=== PATIENT | male | born 1945 | race Caucasian/White ===

== ENCOUNTER 2020-02-24 19:03 | Emergency (ER) | payer MEDICARE, SELFPAY ==
--- NOTE | ~2020-02-24 | XR_ITS ---
EXAMINATION: XR chest 1V portable INDICATION: Shortness of breath and fever TECHNIQUE: Portable AP chest at 1948 hours COMPARISON: 01/28/2013 FINDINGS: There are diffuse interstitial and airspace opacities of the lungs. No pleural effusion or pneumothorax is identified. The cardiomediastinal silhouette is normal for technique. The visualized osseous structures are unremarkable. IMPRESSION: 1. Diffuse lung disease, consistent with pneumonia and/or pulmonary edema and/or atelectasis. Reviewed, dictated and finalized at location A. STITCHER IMPRESSION: 1. Diffuse lung disease, consistent with pneumonia and/or pulmonary edema and/o r atelectasis.
[2020-02-24 19:13] VITALS: BP 163/76; PULSE 93; RESP 19; TEMP 37.2; O2SAT 95
--- NOTE | 2020-02-24 19:18 | ECG_ITS ---
Measurements Intervals [place] Rate: 87 P: 28 MD: 153 QRS: 40 QRSD: 92 T: 11 QT: 325 QTc: 391 Interpretive Statements SINUS RHYTHM EARLY PRECORDIAL R/S TRANSITION BASELINE ARTIFACT- I, II, III, AVR, AVL BORDERLINE ECG Electronically Signed On 02-24-2020 21:47:07 SPINNING MACHINE OPERATOR by Alexander Dickerson D.O.
--- NOTE | 2020-02-24 19:30 | ED.SOB ---
HPI - SOB/Dyspnea General Chief Complaint: Shortness of Breath/Dyspnea Stated Complaint: sent from urgent care, -cardiomegaly Time Seen by Provider: 02/24/20 19:30 History of Present Illness HPI Narrative: 74 yo male sent from urgent care for SOB. He reports that he has been sick for several days. His symptoms have been cough, SOB, aches, and fatigue. He was concerned that he may have COVID-19 and went to urgent care for testing. They collected the test and did a chest x-ray. They told him that on the x-ray his heart was enlarged and he had fluid in his lungs, so they sent him here. Related Data Allergies Allergy/AdvReac Type Severity Reaction Status Date / Time No Known Allergies Allergy Mild Verified 02/24/20 19:24 Review of Systems Review of Systems: All systems reviewed & are unremarkable except as noted in HPI and below Constitutional: Constitutional: Reports fatigue and Denies fever(s) Cardiovascular: Cardiovascular: Denies chest pain Respiratory: Respiratory: Reports dyspnea Gastrointestinal: Gastrointestinal: Denies abdominal pain Musculoskeletal: Musculoskeletal: Reports myalgias Neurologic: Denies weakness [facility] Past Medical History Medical History (Updated 02/27/20 @ 16:24 by Eric Chan MD) Hyperlipidemia Social History Social History (Updated 02/27/20 @ 16:24 by Eric Chan MD) Smoking status: Never smoker Gender identity (if verbalized by the patient): Male Exam Const: General: no acute distress and alert Orientation/consciousness: patient oriented x3 HENMT: Head: normal to inspection Neck: Neck: normal visual inspection and no lymphadenopathy Chest: Chest palpation & inspection: no tenderness Resp: Effort & Inspection: tachypneic Auscultation: clear to auscultation bilaterally, crackles bilateral in the lower lung ponce and no wheezes Cardio: Jugular venous distension: no JVD Rate: regular rate Rhythm: regular rhythm Heart sounds: no murmurs GI: Inspection: non-distended GI Palp: Yes Soft to palpation and No Tenderness to palpation present (GI) Skin: General skin exam: normal color Neuro: General: patient oriented x3, moves all extremities, no focal motor deficits and CN's II-XI intact bilaterally Speech: normal speech Gait exam (Neuro): Normal gait present Extrem: General: no edema Psych: Appearance: well kempt Affect: normal affect Course Vital Signs Vital signs: Vital Signs Temperature 37.2 C 02/24/20 19:13 Pulse Rate 93 02/24/20 19:13 Respiratory Rate 19 02/24/20 19:13 Blood Pressure 163/76 H 02/24/20 19:13 Pulse Oximetry 95 02/24/20 19:13 Temperature 37.4 C 02/24/20 21:59 Pulse Rate 92 02/24/20 21:59 Respiratory Rate 18 02/24/20 21:59 Blood Pressure 155/72 H 02/24/20 21:59 Pulse Oximetry 94 02/24/20 21:59 MDM - SOB/Dyspnea MDM Narrative Medical decision making narrative: Nonspecific infiltrateon x-ray. BNP normal. Most likely infectious. Differential Diagnosis Differential diagnosis: Likely congestive heart failure and community acquired pneumonia Medical Records Attestation: I reviewed the patient's medical records. Lab Data Attestation: I reviewed the patient's lab results. Result diagrams: 02/24/20 19:20 02/24/20 19:20 Labs: Lab Results 02/24/20 02/24/20 02/24/20 Range/Units 19:20 19:20 19:20 WBC 10.2 H (4.5-10.0) K/mm3 RBC 5.19 (4.6-6.20) M/mm3 Hgb 16.9 (14.0-18.0) g/dL Hct 50.3 (42.0-52.0) % MCV 96.9 (80-100) fl MCH 32.6 (26-34) pg MCHC 33.6 (32-36) g/dl RDW 12.7 (11.5-14.5) % Plt Count 295 (150-375) k/mm3 MPV 10.1 (7.4-10.4) fl Immature Gran % (Auto) 0.3 (0-0.5) % Neut % (Auto) 64.3 (45.5-73.1) % Lymph % (Auto) 18.1 L (18.3-44.2) % Desha % (Auto) 13.9 H (2.6-8.5) % Eos % (Auto) 2.4 (0-4.4) % Baso % (Auto) 1.0 (0.2-1.2) % Lymph # (Auto) 1.85 (0.9-3.2) K/mm3 Desha # (A
[2020-02-24 19:36] LABS: Basophils Absolute Auto 0.1 K/mm3 (0.0-0.1); Eosinophils Absolute Auto 0.3 K/mm3 (0-0.3); Eosinophils Percent Auto 2.4 % (0-4.4); Hematocrit 50.3 % (42.0-52.0); Hemoglobin 16.9 g/dL (14.0-18.0); Immature Granulocyte Absolute 0.03 K/mm3 (0.00-0.031); Immature Granulocyte Percent A 0.3 % (0-0.5); Lymphocytes Absolute Auto 1.85 K/mm3 (0.9-3.2); Lymphocytes Percent Auto 18.1 % (18.3-44.2); Mean Corpuscular HGB Conc 33.6 g/dl (32-36); Mean Corpuscular Hemoglobin 32.6 pg (26-34); Mean Corpuscular Volume 96.9 fl (80-100); Mean Platelet Volume 10.1 fl (7.4-10.4); Monocytes Absolute Auto 1.4 K/mm3 (0.1-0.6); Monocytes Percent Auto 13.9 % (2.6-8.5); Neutrophils Absolute Auto 6.6 K/mm3 (1.3-6.7); Neutrophils Percent Auto 64.3 % (45.5-73.1); Platelet Count Result 295 k/mm3 (150-375); Red Blood Count 5.19 M/mm3 (4.6-6.20); Red Cell Distribution Width 12.7 % (11.5-14.5); White Blood Count 10.2 K/mm3 (4.5-10.0)
[2020-02-24 19:40] LABS: Add Urine Microscopic? YES; Appearance Urine Clear (Clear); Bacteria Urine Trace /hpf; Bilirubin Urine Negative (Negative); Blood Urine Negative (Negative); Color Urine Yellow (Yellow); Glucose Urine UA Negative (Negative); Ketones Urine Negative (Negative); Leukocyte Esterase Ur Negative LEU/UL (Negative); Mucus Urine Rare /lpf; Nitrate Urine Negative (Negative); Protein Urine 2+ mg/dL (Negative); RBC Urine 0-2 /hpf (0-2); WBC Urine 0-3 /hpf
[2020-02-24 19:49] LABS: Anion Gap 6 mmol/L (8-16); Blood Urea Nitrogen 17 mg/dL (9-20); Calcium 9.1 mg/dL (8.4-10.2); Carbon Dioxide 33 mmol/L (22-30); Chloride 98 mmol/L (98-107); Estimated CRCL calculation 56 ml/min; Estimated Glomerular Filt Rate > 60; Glucose 106 mg/dL (75-110); Potassium 4.1 mmol/L (3.4-5.0); Sodium 137 mmol/L (137-145)
[2020-02-24 19:50] LABS: Lactic Acid Reflex 1.3 mmol/L (0.7-2.1)
[2020-02-24 19:57] VITALS: PULSE 88; O2SAT 95
[2020-02-24 20:01] VITALS: BP 157/88; PULSE 94; RESP 21; O2SAT 96
[2020-02-24 20:09] LABS: Prothrombin Time 13.5 Seconds (11.1-14.7)
[2020-02-24 20:10] LABS: Partial Thromboplastin Time 31.1 SECONDS (22.3-36.8)
[2020-02-24 20:16] VITALS: BP 152/92; PULSE 89; RESP 22; O2SAT 95
[2020-02-24 20:16] LABS: NT Pro B Type Natriuretic Pept 54 PG/ML (5-100); Troponin I < 0.012 ng/mL (0.000-0.034)
[2020-02-24 21:14] VITALS: BP 156/89; PULSE 91; RESP 19; O2SAT 96
--- NOTE | 2020-02-24 21:30 | PC.NURSE ---
Patient reports nausea. Per EDP Dustin via verbal order read back, order 10mg IVP Reglan.
[2020-02-24] MEDS: METOCLOPRAMIDE HCL INJ 10 MG/2 ML VIAL IV PUSH (21:33)
[2020-02-24] MEDS: AZITHROMYCIN 250 MG TABLET 500 MG PO (21:33)
--- NOTE | 2020-02-24 21:50 | PC.NURSE ---
Patient states he was COVID swabbed yesterday at Urgent Care. Per EDP Dustin, no re-swab needed.
[2020-02-24 21:59] VITALS: BP 155/72; PULSE 92; RESP 18; TEMP 37.4; O2SAT 94
== END 2020-02-24 22:01 | disposition home or self-care (01) ==
PROVIDERS: Emergency Provider Emergency Medicine
DX: J18.9 Pneumonia, unspecified organism (principal); Z20.822 Contact with and (suspected) exposure to COVID-19; E78.5 Hyperlipidemia, unspecified
CPT/HCPCS: 36415; 71045; 80048; 81001; 83605; 83880; 84484; 85025; 85610; 85730; 93005; 96374; 96375; 99284; A9270; J1100; J2765

== ENCOUNTER 2022-07-03 13:24 | Emergency (ER) | payer MEDICARE, OTHER, SELFPAY ==
--- NOTE | ~2022-07-03 | XR_ITS ---
EXAMINATION: XR finger 4th LT min 2V DATE: 07/03/2022 13:49 INDICATION: Left hand fourth digit injury. TECHNIQUE: 3 views of left hand fourth digit were obtained. COMPARISON: None. FINDINGS: There is an open comminuted displaced extra articular fracture of fourth distal phalanx. Kathy int spaces are normal. IMPRESSION: 1. Open comminuted fracture of fourth distal phalanx. Reviewed, dictated and finalized at location A.
[2022-07-03 13:26] VITALS: BP 129/77; PULSE 92; RESP 20; TEMP 36.7; O2SAT 95
[2022-07-03] MEDS: TETANUS,DIPHTHERIA,AC PERTUSSIS ADULT (0.5 ML) BOOSTRIX IM (13:50)
--- NOTE | 2022-07-03 14:25 | ED.WOUNDLAC ---
HPI - Wound/Laceration General Chief Complaint: Wound/Laceration Stated Complaint: left ring finger laceration Time Seen by Provider: 07/03/22 13:34 Source: patient Mode of arrival: ambulatory Limitations: no limitations History of Present Illness HPI narrative: Patient is a 77-year-old male who presents the ED with report of a laceration to his left fourth digit. Patient reports he was cutting a board with a circular saw when his hand slipped and he sustained a laceration to his left lateral fourth digit. Denies numbness or tingling. Denies any other injuries. Tetanus is unknown. Patient is on Eliquis. Related Data Allergies Allergy/AdvReac Type Severity Reaction Status Date / Time No Known Allergies Allergy Mild Verified 07/03/22 13:24 Review of Systems Review of Systems: CONSTITUTIONAL: Denies fever, chills, or sweats. SKIN: See HPI. MUSCULOSKELETAL: See HPI. NEUROLOGIC: Denies tingling, numbness, or weakness. All systems reviewed & are unremarkable except as noted in HPI and below PMFSH Past Medical History Medical History Hyperlipidemia Social History Social History Smoking status: Never smoker Gender identity (if verbalized by the patient): Male Exam Narrative: GENERAL: Well appearing, morbidly obese 38.6, non-toxic, in no acute distress. HEAD: Normocephalic, atraumatic. NECK: Supple. No adenopathy, no masses. RESPIRATORY: Airway patent, respirations nonlabored. CARDIOVASCULAR: Regular rate and rhythm without murmurs, rubs, or gallops. Radial pulses 2+ and equal bilaterally. MUSCULOSKELETAL: Moves all extremities. Distal sensation intact to L 4th digit. SKIN: Warm, dry, normal color. No rashes. Jagged laceration to extensor surface of L 4th digit beginning from middle of DIP region extending laterally along lateral edge of nail plate to distal finger pad. Macerated tissue to lateral finger pad. Damage to lateral edge of nail, but proximal nail fold and nail matrix intact. Active bleeding noted. R upper corner of nail of L 4th digit with small amount of subungual hematoma. NEURO: A&O X3. Speech clear. Cranial nerves II-XII grossly intact. Steady gait. No ataxic movements. PSYCHIATRIC: Appropriate mood and affect. Normal interaction. Course Vital Signs Vital signs: Vital Signs Temperature 98.1 F 07/03/22 13:26 Pulse Rate 92 07/03/22 13:26 Respiratory Rate 20 07/03/22 13:26 Blood Pressure 129/77 07/03/22 13:26 Pulse Oximetry 95 07/03/22 13:26 Oxygen Delivery Room Air 07/03/22 13:26 Temperature 98.1 F 07/03/22 13:26 Pulse Rate 93 07/03/22 16:13 Respiratory Rate 20 07/03/22 16:13 Blood Pressure 130/76 07/03/22 16:13 Pulse Oximetry 97 07/03/22 16:13 Oxygen Delivery Room Air 07/03/22 13:26 Procedures Laceration Laceration 1: Date: 07/03/22 Time: 15:00 Site: hand Side (If applicable): left (4th digit) Size (cm): 3 Description: linear and irregular Depth: simple, single layer Local Anesthetic: lidocaine 1% and other anesthetic (digital block) Amount of anesthesia used (mL): 2 (injected locally) Pre-repair: wound explored, irrigated and irrigated extensively ====== Skin Level ====== Skin layer closed with: nylon Size (cm): 4-0 (#1 through nail to skin) and 5-0 Number of sutures: 11 Technique: simple, interrupted ====== Subcutaneous Layer ====== ====== Muscle Layer ====== ====== Tendon Layer ====== Nerve Block Nerve Block 1: Nerve block date: 07/03/22 Nerve block time: 14:55 Time out performed: Yes Local Anesthetic: lidocaine 1% Amount of anesthesia used (mL): 5 Side: left Nerve Blocks: digital (4th digit) Procedure Successful: Yes Patient Tolerated Procedur
[2022-07-03] MEDS: ceFAZolin SODIUM 1 GM VIAL IM (15:11)
[2022-07-03] MEDS: LIDOCAINE HCL 1% LOCAL INJ 10 ML VIAL (15:12)
[2022-07-03] MEDS: HYDROcodone/acetaminophen (*CRX) 5-325 MG TABLET 1 TAB PO (15:29)
[2022-07-03 16:13] VITALS: BP 130/76; PULSE 93; RESP 20; O2SAT 97
== END 2022-07-03 16:18 | disposition home or self-care (01) ==
PROVIDERS: Emergency Provider Physician Assistant
DX: S62.635B Displaced fracture of distal phalanx of left ring finger, initial encounter for open fracture (principal); Z23 Encounter for immunization; E78.5 Hyperlipidemia, unspecified; E66.01 Morbid (severe) obesity due to excess calories; Z68.38 Body mass index [BMI] 38.0-38.9, adult; Z79.01 Long term (current) use of anticoagulants; W31.2XXA Contact with powered woodworking and forming machines, initial encounter
CPT/HCPCS: 12002; 29130; 73140; 90471; 90715; 99284; A9270; J0690